=== PATIENT | female | born 1995 | race Caucasian/White ===

== ENCOUNTER 2023-07-05 09:00 | Emergency (ER) | payer BC ==
[~2023-07-05] VITALS: Ht 167.6 cm; Wt 102.1 kg
[2023-07-05] MEDS ORDERED: TOPI50TA PO (09:06)
[2023-07-05 09:07] VITALS: BP_SYST 113; PULSE 83; RESP 16; TEMP 97.7; O2SAT 98
[2023-07-05 11:47] VITALS: BP_SYST 117; PULSE 75; RESP 16; TEMP 97.8; O2SAT 9
== END 2023-07-05 11:47 | disposition home or self-care (01) ==
LOC: SED 09:00
DX: S90.01XA Contusion of right ankle, initial encounter (principal); Z79.899 Other long term (current) drug therapy; W20.8XXA Other cause of strike by thrown, projected or falling object, initial encounter; Y93.89 Activity, other specified; Y92.89 Other specified places as the place of occurrence of the external cause; Y99.8 Other external cause status
CPT/HCPCS: 81025; 99283